=== PATIENT | male | born 1985 | race Caucasian/White ===

== ENCOUNTER → 2021-09-05 | Outpatient (CLI) | payer BC ==
--- NOTE | 2021-09-05 11:25 | Diagnostic Imaging Report ---
PROCEDURE: US Renal/Bladder. TECHNIQUE: Multiple real-time grayscale images were obtained over the kidneys in various projections bilaterally. INDICATION: Chronic kidney disease. COMPARISON: None. FINDINGS: Right: The right kidney measures 8.7 cm in length. Renal cortical thickness and echogenicity are within normal limits. There is no evidence of calculi, solid focal mass or hydronephrosis. No perinephric fluid collections are identified. Left: The left kidney measures 9.4 cm in length. Renal cortical thickness and echogenicity are within normal limits. There is no evidence of calculi, solid focal mass or hydronephrosis. No perinephric fluid collections are identified. There is no abdominal ascites. Views of the pelvis demonstrate a mildly distended urinary bladder. Both ureteral jets are seen. No large intraluminal filling defect or calculi are identified. IMPRESSION: 1. No acute renal abnormalities identified. Dictated by: Dictated on workstation # [id number]
== END ==
LOC: RAD 10:45
PROVIDERS: ATTEND Internal Medicine
DX: N18.31 Chronic kidney disease, stage 3a (principal)
CPT/HCPCS: 76770